=== PATIENT | male | born 1980 | race Caucasian/White ===

== ENCOUNTER 2017-05-25 13:26 | Emergency (ER) | payer MEDICAID ==
[2017-05-25] MEDS ORDERED: TETANUS/DIPHTHERIA/PERTUSSIS 0.5 ML SYRINGE IM ONE ×2 (13:41→13:51)
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
[2017-05-25 14:13] VITALS: BP 120/75
== END 2017-05-25 14:09 | disposition home or self-care (01) ==
LOC: ED 13:26
DX: S91.332A Puncture wound without foreign body, left foot, initial encounter (principal); W22.09XA Striking against other stationary object, initial encounter; Y92.832 Beach as the place of occurrence of the external cause; F17.200 Nicotine dependence, unspecified, uncomplicated; Z23 Encounter for immunization
CPT/HCPCS: 90471; 99282; 99283